=== PATIENT | female | born 1950 | race Caucasian/White ===

== ENCOUNTER → 2021-01-05 | Outpatient (CLI) | payer MEDICARE | LOC: KOH-I 12:18 | DX: M25.551 Pain in right hip (principal); M25.561 Pain in right knee; R93.7 Abnormal findings on diagnostic imaging of other parts of musculoskeletal system | CPT/HCPCS: 73502; 73562 ==

== ENCOUNTER → 2021-01-21 | Outpatient (CLI) | payer MEDICARE | LOC: KOH-I 14:30 | DX: M25.551 Pain in right hip (principal) | CPT/HCPCS: 73721 ==